=== PATIENT | female | born 1960 | race Caucasian/White ===

== ENCOUNTER 2017-04-08 09:20 | Day surgery (SDC) | payer BC ==
[2017-04-08] MEDS ORDERED: PROPOFOL 40 ML (11:40)
== END 2017-04-08 13:09 | disposition home or self-care (01) ==
LOC: GIL 09:20
DX: Z12.11 Encounter for screening for malignant neoplasm of colon (principal); K29.30 Chronic superficial gastritis without bleeding; K21.0 Gastro-esophageal reflux disease with esophagitis; D12.4 Benign neoplasm of descending colon; K64.4 Residual hemorrhoidal skin tags; E11.9 Type 2 diabetes mellitus without complications; I10 Essential (primary) hypertension
CPT/HCPCS: 43239; 88305; 88312; 88313

== ENCOUNTER 2018-07-15 06:48 | Emergency (ER) | payer OTHER, BC ==
[2018-07-15] MEDS: ASPIRIN 325 MG TAB PO (07:27)
[2018-07-15 07:39] LABS: ADD MAN DIFF? NO
[2018-07-15 07:43] LABS: WHITE BLOOD COUNT 9.6 10^3/ul (4.8-10.8)
[2018-07-15 07:43] LABS: BASOPHILS % 0.2 % (0.0-2.0); EOSINOPHILS # 0.1 10^3/ul (0.0-0.5); EOSINOPHILS % 1.3 % (0.0-7.0); HEMATOCRIT 40.3 % (37.0-47.0); HEMOGLOBIN 12.9 g/dl (12.0-16.0); LYMPHOCYTES # 1.7 10^3/ul (0.8-2.9); LYMPHOCYTES % 17.9 % (15.0-51.0); MEAN CORPUSCULAR HEMOGLOBIN 24.6 pg (29.0-33.0); MEAN CORPUSCULAR VOLUME 76.9 fl (82.0-101.0); MEAN PLATELET VOLUME 9.2 fl (7.4-10.4); MONOCYTE # 0.5 10^3/ul (0.3-0.9); MONOCYTES % 5.7 % (0.0-11.0); NEUTROPHIL # 7.1 10^3/ul (1.6-7.5); NEUTROPHILS % 74.5 % (39.0-77.0); PLATELET COUNT 363 10^3/UL (140-415); RED BLOOD COUNT 5.24 10^6/ul (4.20-5.40); RED CELL DISTRIBUTION WIDTH 13.8 % (11.5-14.5)
[2018-07-15 08:02] LABS: INR 1.02; PROTIME 13.5 Sec (11.9-14.9); PT RATIO 1.1
[2018-07-15 08:03] LABS: ALANINE AMINOTRANSFERASE 45 IU/L (13-69); ALBUMIN 4.5 g/dl (3.3-4.9); ALBUMIN/GLOBULIN RATIO 1.15; ALKALINE PHOSPHATASE 86 IU/L (42-121); ANION GAP 12 (5-13); ASPARTATE AMINO TRANSFERASE 31 IU/L (15-46); BILIRUBIN,INDIRECT 1.3 mg/dl (0-1.1); BILIRUBIN,TOTAL 1.3 mg/dl (0.2-1.3); BLOOD UREA NITROGEN 12 mg/dl (7-20); CALCIUM 9.6 mg/dl (8.4-10.2); CARBON DIOXIDE 26 mmol/L (21-31); CHLORIDE 101 mmol/L (97-110); CREATINE KINASE 80 IU/L (23-200); CREATININE 0.54 mg/dl (0.44-1.00); Estimated GFR > 60 mL/min (>60); GLUCOSE 207 mg/dl (70-220); PARTIAL THROMBOPLASTIN TIME 28.3 Sec (23.0-35.0); POTASSIUM 4.1 mmol/L (3.5-5.1); SODIUM 139 mmol/L (135-144); TOTAL PROTEIN 8.4 g/dl (6.1-8.1)
[2018-07-15] MEDS: SOD CHLORIDE 0.9% 1,000 ML IV (08:03)
[2018-07-15] MEDS: ONDANSETRON 4 MG INJ IV (08:05)
[2018-07-15] MEDS: ACETAMINOPHEN 500 MG TAB PO (08:05)
[2018-07-15] MEDS: KETOROLAC 30 MG INJ IV (08:05)
[2018-07-15 08:15] LABS: B-TYPE NATRIURETIC PEPTIDE 56 PG/ML (0-125); CK INDEX 1.7; CK-MB 1.32 ng/ml (0.0-2.4); TROPONIN-I < 0.012 ng/ml (0.000-0.120)
[2018-07-15] MEDS: IPRATROPIUM (NEB) 0.5 MG/2.5 ML AMP NEB (08:35)
[2018-07-15] MEDS: ALBUTEROL 0.083% (NEB) 2.5 MG/3 ML AMP NEB (08:35)
== END 2018-07-15 09:34 | disposition home or self-care (01) ==
LOC: FTE 06:48
DX: M94.0 Chondrocostal junction syndrome [Tietze] (principal); J01.10 Acute frontal sinusitis, unspecified; E11.9 Type 2 diabetes mellitus without complications; I10 Essential (primary) hypertension; R05 Cough; Z79.84 Long term (current) use of oral hypoglycemic drugs
CPT/HCPCS: 36415; 71045; 80053; 82550; 82553; 83880; 84484; 85025; 85610; 85730; 93005; 94664; 96374; 96375; 99285-25

== ENCOUNTER 2018-08-07 07:48 | Emergency (ER) | payer OTHER ==
[2018-08-07] MEDS: morphine 4 MG/ML VIAL IV (08:40)
[2018-08-07] MEDS: SOD CHLORIDE 0.9% 500 ML IV (08:40)
[2018-08-07] MEDS: ONDANSETRON 4 MG INJ IV ×2 (08:40→10:22)
[2018-08-07 08:51] LABS: ADD MAN DIFF? NO
[2018-08-07 08:56] LABS: WHITE BLOOD COUNT 7.3 10^3/ul (4.8-10.8)
[2018-08-07 08:56] LABS: BASOPHILS % 0.1 % (0.0-2.0); EOSINOPHILS # 0.3 10^3/ul (0.0-0.5); EOSINOPHILS % 4.2 % (0.0-7.0); HEMATOCRIT 38.3 % (37.0-47.0); LYMPHOCYTES % 27.7 % (15.0-51.0); MEAN CORPUSCULAR HGB CONC 31.3 g/dl (32.0-37.0); MEAN CORPUSCULAR VOLUME 76.6 fl (82.0-101.0); MEAN PLATELET VOLUME 8.9 fl (7.4-10.4); MONOCYTE # 0.3 10^3/ul (0.3-0.9); MONOCYTES % 4.6 % (0.0-11.0); NEUTROPHIL # 4.6 10^3/ul (1.6-7.5); NEUTROPHILS % 63.1 % (39.0-77.0); PLATELET COUNT 401 10^3/UL (140-415); RED CELL DISTRIBUTION WIDTH 13.7 % (11.5-14.5)
[2018-08-07 09:12] LABS: INR 1.03; PROTIME 13.6 Sec (11.9-14.9); PT RATIO 1.1
[2018-08-07 09:13] LABS: PARTIAL THROMBOPLASTIN TIME 27.5 Sec (23.0-35.0)
[2018-08-07 09:16] LABS: ALANINE AMINOTRANSFERASE 40 IU/L (13-69); ALBUMIN 4.2 g/dl (3.3-4.9); ALBUMIN/GLOBULIN RATIO 1.05; ALKALINE PHOSPHATASE 89 IU/L (42-121); AMYLASE 69 U/L (11-123); ANION GAP 8 (5-13); ASPARTATE AMINO TRANSFERASE 36 IU/L (15-46); BILIRUBIN,INDIRECT 1.1 mg/dl (0-1.1); BILIRUBIN,TOTAL 1.1 mg/dl (0.2-1.3); BLOOD UREA NITROGEN 9 mg/dl (7-20); CALCIUM 9.3 mg/dl (8.4-10.2); CARBON DIOXIDE 26 mmol/L (21-31); CHLORIDE 106 mmol/L (97-110); CREATININE 0.48 mg/dl (0.44-1.00); Estimated GFR > 60 mL/min (>60); GLUCOSE 182 mg/dl (70-220); LIPASE 56 U/L (23-300); POTASSIUM 4.3 mmol/L (3.5-5.1); SODIUM 140 mmol/L (135-144); TOTAL PROTEIN 8.2 g/dl (6.1-8.1)
[2018-08-07 09:29] LABS: TROPONIN-I < 0.012 ng/ml (0.000-0.120)
[2018-08-07 09:41] LABS: ADD UMIC YES; UR ASCORBIC ACID NEGATIVE (NEGATIVE); UR BACTERIA FEW /HPF (NONE SEEN); UR BILIRUBIN (Dip) NEGATIVE (NEGATIVE); UR BLOOD (Dip) 1+ mg/dL (NEGATIVE); UR CLARITY SLIGHTLY CLOUDY (CLEAR); UR COLOR YELLOW (YELLOW); UR GLUCOSE (Dip) NEGATIVE (NEGATIVE); UR KETONES (Dip) NEGATIVE (NEGATIVE); UR LEUKOCYTE ESTERASE (Dip) TRACE Leu/ul (NEGATIVE); UR MUCUS FEW /HPF (NONE SEEN); UR NITRITE (Dip) NEGATIVE (NEGATIVE); UR RBC 10 /HPF (0-5); UR SPECIFIC GRAVITY (Dip) 1.018 (1.003-1.030); UR SQUAMOUS EPITHELIAL CELL MODERATE /HPF (FEW); UR TOTAL PROTEIN (Dip) 1+ mg/dl (NEGATIVE); UR UROBILINOGEN (Dip) NEGATIVE (NEGATIVE); UR WBC 37 /HPF (0-5)
[2018-08-07] MEDS: HYDROmorphONE 1 MG/ML SYG IV (10:23)
[2018-08-07] MEDS: CEFTRIAXONE 1 GM/50 ML (PMX) 50 ML IVPB (10:35)
== END 2018-08-07 15:54 | disposition home or self-care (01) ==
LOC: E/R 07:48
DX: G44.219 Episodic tension-type headache, not intractable (principal); N30.00 Acute cystitis without hematuria; L03.115 Cellulitis of right lower limb; L03.116 Cellulitis of left lower limb; E11.9 Type 2 diabetes mellitus without complications; R42 Dizziness and giddiness
CPT/HCPCS: 36415; 70450; 80053; 81001; 82150; 83690; 84484; 85025; 85610; 85730; 87086; 93005; 93970; 96361; 96374; 96375; 96376; 99285-25